=== PATIENT | male | born 1955 | race American Indian/Alaskan Native ===

== ENCOUNTER 2017-06-26 09:02 | Outpatient (CLI) | payer OTHER ==
--- NOTE | 2017-06-26 13:57 | Ultrasound Report ---
RIGHT UPPER QUADRANT ABDOMINAL ULTRASOUND: 06/26/17 09:02:00 CLINICAL: Right upper quadrant mass/swelling. FINDINGS: High-resolution ultrasound demonstrated a normal size liver with normal contour and echogenicity. No liver mass. Normal gallbladder and bile ducts. The gall bladder wall measures 1.0 mm in thickness. The common bile duct measures 2.0 mm diameter. Extensive retroperitoneal lymphadenopathy with enlarged peripancreatic and periaortic lymph nodes. The pancreatic head is not well imaged. The pancreatic body and tail are normal. The right kidney measures 9.3 x 6.1 x 5.0 cm. The right renal collecting system and ureter are nondilated. The echo pattern of the right kidney is abnormal and is suggestive of a possible infiltrative process in the kidney. A solid heterogeneous mass along the right psoas muscle bulges from the abdomen and measures 12.3 x 8.7 x 6.0 cm. No ascites. IMPRESSION: 1. A 12.3 cm right retroperitoneal mass at the right psoas muscle. 2. Extensive retroperitoneal lymphadenopathy with enlarged periaortic and peripancreatic lymph nodes. 3. Suboptimal imaging of the pancreatic head such that a pancreatic head mass cannot be excluded. 4. Abnormal echo pattern of the right kidney suggests a possible infiltrative lesion of the right kidney. 5. Normal liver and biliary tract. 6. Recommend CT abdomen and pelvis with both oral and IV contrast.
== END 2017-06-26 09:03 | disposition home or self-care (01) ==
LOC: SPVWC 09:02
PROVIDERS: ATTEND Family Medicine
DX: K66.8 Other specified disorders of peritoneum (principal); R19.01 Right upper quadrant abdominal swelling, mass and lump; R59.1 Generalized enlarged lymph nodes
CPT/HCPCS: 76705